=== PATIENT | female | born 1960 | race Caucasian/White ===

== ENCOUNTER → 2016-06-21 | Outpatient (CLI) | payer OTHER ==
--- NOTE | ~2016-06-21 | CT138 ---
[facility] A Service of [facility] RADIOLOGY TEXT RESULTS PATIENT: AUDELIA MANUEL LOCATION: [facility] : 58 UNIT #: [id number] AGE: [address]: Petra Bell MD SEX: F ORDER DR: [id number] [facility]. [place], [place] [address] [id number] O MR#: [id number] Acc #: [id number] NAME: AUDELIA MANUEL : 1960 SEX: F STUDY DATE/TIME: 06/21/2016 14:23 UNIT: [facility] ROOM: STUDY DESCRIPTION: CT Lung screening initial Attending Physician: Petra Bell M.D. Referring Physician: Petra Bell M.D. Ordering Physician: Petra Bell M.D. Primary Care Physician: No Primary Care Physician MEDICAL IMAGING REPORT This report is preliminary unless electronic signature is present EXAM CT chest. HISTORY Lung cancer screening. 55-year-old female is a current smoker with a 40-pack/year history of smoking. TECHNIQUE CT of the thorax without contrast. Coronal and sagittal reconstructions were obtained. The exam was performed as a low-dose chest CT utilizing lung cancer screening protocol. CTDI volume 2.95 mGy. DLP 113.24 mGy-cm. COMPARISON None available. FINDINGS This is a benign lung cancer screening. There are 2 small pulmonary nodules measuring less than 2 mm in size. These are considered benign findings on the ACR Lung-RADS calcification. There is mild emphysema. Central airways are patent. No enlarged mediastinal or hilar lymph nodes. Thoracic aorta is normal in caliber. IMPRESSION Benign lung cancer screening. There are a few small nodules; however, these measure less than 2 mm in size and are considered benign, utilizing the ACR Lung-RADS lexicon. ACR Lung-RADS classification: 2 - Benign examination. Recommendations - Annual lung cancer screening with a low-dose chest CT. [facility] A Service of [facility] RADIOLOGY TEXT RESULTS PATIENT: AUDELIA MANUEL LOCATION: [facility] : 58 UNIT #: [id number] AGE: [address]: Petra Bell MD SEX: F ORDER DR: Dictated by... Albino Posada M.D. THIS IS AN ELECTRONICALLY VERIFIED REPORT Albino Posada M.D. at 06/21/2016 6:23 PM DANIS/sola TD: 06/21/2016 17:27 JOB #: [id number] MEDICAL IMAGING REPORT Page 1 of 1 COPY
== END | disposition home or self-care (01) ==
LOC: CCAT 14:07
DX: F17.210 Nicotine dependence, cigarettes, uncomplicated (principal); R91.8 Other nonspecific abnormal finding of lung field
CPT/HCPCS: G0297